=== PATIENT | female | born 1990 | race African-American/Black ===

== ENCOUNTER 2016-09-29 23:42 | Emergency (ER) | payer OTHER ==
[~2016-09-29 23:42] MED LIST: BENADRYL25 M1; FAMOTIDINE; NO MEDICATIONS; PREDNISONE
== END 2016-09-30 00:28 | disposition home or self-care (01) ==
LOC: SED 23:42
DX: J02.9 Acute pharyngitis, unspecified (principal); F17.210 Nicotine dependence, cigarettes, uncomplicated; Z91.040 Latex allergy status; Z88.8 Allergy status to other drugs, medicaments and biological substances
CPT/HCPCS: 84703; 87651; 99282

== ENCOUNTER 2016-10-12 18:45 | Emergency (ER) | payer OTHER | END 2016-10-12 19:16 | disposition home or self-care (01) | LOC: SED 18:45 | DX: J06.9 Acute upper respiratory infection, unspecified (principal); Z91.040 Latex allergy status; Z88.8 Allergy status to other drugs, medicaments and biological substances | CPT/HCPCS: 99282 ==

== ENCOUNTER 2016-11-09 21:41 | Emergency (ER) | payer OTHER ==
[2016-11-09 21:48] LABS: URINE SOURCE CLEAN CATCH
[2016-11-09 21:50] LABS: URINE APPEARANCE CLEAR; URINE BILIRUBIN NEG (NEG); URINE BLOOD 3+ (NEG); URINE COLOR YELLOW; URINE GLUCOSE NEG (NORM); URINE KETONE TRACE (NEG); URINE NITRATE NEG (NEG); URINE PH 6.5 (5-8); URINE PROTEIN TRACE (NEG)
[2016-11-09 21:56] LABS: MICRO INDICATED? YES; URINE LEUKOCYTE ESTERASE 1+ (NEG)
[2016-11-09 21:57] LABS: CULTURE INDICATED? YES; URINE BACTERIA 1+ (NEG); URINE MUCUS PRESENT; URINE SQUAMOUS EPITHELIAL CELL MANY /[HPF]
== END 2016-11-09 22:35 | disposition home or self-care (01) ==
LOC: SED 21:41
PROVIDERS: Nurse Practitioner Family
DX: M54.5 Low back pain (principal); F17.200 Nicotine dependence, unspecified, uncomplicated
CPT/HCPCS: 81003; 84703; 87086; 99283

== ENCOUNTER 2016-12-25 21:50 | Emergency (ER) | payer OTHER ==
[2016-12-26 02:05] LABS: URINE SOURCE CLEAN CATCH
[2016-12-26 02:15] LABS: MICRO INDICATED? YES; URINE APPEARANCE CLEAR; URINE BILIRUBIN NEG (NEG); URINE BLOOD 2+ (NEG); URINE COLOR YELLOW; URINE GLUCOSE NEG (NORM); URINE KETONE NEG (NEG); URINE LEUKOCYTE ESTERASE NEG (NEG); URINE NITRATE NEG (NEG); URINE PROTEIN NEG (NEG); URINE SPECIFIC GRAVITY 1.025 (1.003-1.035)
[2016-12-26 02:20] LABS: CULTURE INDICATED? NO; URINE BACTERIA NEG (NEG); URINE MUCUS PRESENT; URINE SQUAMOUS EPITHELIAL CELL FEW /[HPF]
[2016-12-26 02:21] LABS: URINE AMORPHOUS SEDIMENT AMORP URATES
[2016-12-28 08:32] LABS: CHLAMYDIA TRACH Not Detected (Not Detected); N GONOR Not Detected (Not Detected)
== END 2016-12-26 02:40 | disposition home or self-care (01) ==
LOC: SED 21:50
PROVIDERS: Nurse Practitioner Family
DX: N76.0 Acute vaginitis (principal); N93.8 Other specified abnormal uterine and vaginal bleeding; F17.210 Nicotine dependence, cigarettes, uncomplicated; Z91.040 Latex allergy status; Z88.5 Allergy status to narcotic agent
CPT/HCPCS: 81003; 84703; 87210; 87491; 87591; 87808; 87905; 99284

== ENCOUNTER 2017-02-09 18:13 | Emergency (ER) | payer OTHER ==
[~2017-02-09] VITALS: Ht 160 cm; Wt 108.9 kg
--- NOTE | ~2017-02-09 | CT99 ---
[facility] A Service of [facility] & [facility] RADIOLOGY TEXT RESULTS PATIENT: RACHEL QUARLES LOCATION: SED : 86 UNIT #: [id number] AGE: [address]: Shelby Blanton SEX: F ORDER DR: [id number] [address] [address] [id number] MR#: [id number] Acc #: [id number] NAME: RACHEL QUARLES : 1990 SEX: F STUDY DATE/TIME: 02/09/2017 19:54 UNIT: SED ROOM: STUDY DESCRIPTION: CT Maxillofacial Area W Cont Attending Physician: Shelby Blanton Pa-C Ordering Physician: Shelby Blanton Pa-C Primary Care Physician: Ma[facility] MEDICAL IMAGING REPORT This report is preliminary unless electronic signature is present. EXAM CT maxillofacial area with contrast HISTORY Painful lump/knot under chin on left side for 24 hours, possible abscess. The patient attempted to remove facial piercing, but was unable to. COMMENT CT of the facial bones performed during the intravenous administration of 100 mL of Isovue 370. Imaging was required in the axial plane followed by sagittal and coronal reconstructed images. This CT exam was performed with one or more of the following radiation dose reduction techniques: automatic exposure control, adjustment of mA and/or kV according to patient size, and iterative reconstruction. COMPARISON There is no comparison study FINDINGS There is artifact from dental metal and the facial piercing. Technologist did not froylan the area of interest, but indicates that it is in the left side underneath the chin. There is a soft tissue lesion seen left paramedian subcutaneous fat just below the floor of the mouth musculature measuring about 1.2 x 1.1 cm in dimension. It is most likely an enlarged lymph node. It could simply be reactive, but follow up is recommended to ensure that it resolves. No drainable fluid collection is suspected. There are smaller submandibular region nodes bilaterally. The mastoid air cells are clear. There is mucosal disease in the paranasal sinuses including the right frontal sinus and the bilateral ethmoid air cells right sphenoid sinus, but there is no air fluid level. The temporomandibular joints are located. [facility]. [facility] A Service of [facility] & [facility] RADIOLOGY TEXT RESULTS PATIENT: RACHEL QUARLES LOCATION: [place] : 86 UNIT #: [id number] AGE: [address]: Shelby Blanton SEX: F ORDER DR: IMPRESSION 1. Findings are most consistent with an enlarged left paramedian submental lymph node up to about 1.2 cm in dimension. In age group it is probably reactive, but follow up to ensure resolution is recommended to exclude other pathology. 2. Please be aware this study is limited by streak artifact from the patient's dental metal as well as non-removable piercing. 3. There is some paranasal sinus disease without sinus air fluid level. Dictated by... Eunice Easley M.D. THIS IS AN ELECTRONICALLY VERIFIED REPORT Eunice Easley M.D. at 02/12/2017 6:12 AM SAC/to TD: 02/10/2017 10:52 JOB #: [id number] MEDICAL IMAGING REPORT Page 1 of 1
[2017-02-09 19:12] LABS: BASOPHIL% 0.4 % (0-2.5); DIFF IND NO; EOSINOPHIL# 0.3 X10e3 (0-0.7); EOSINOPHIL% 4.1 % (0.0-7.0); HEMATOCRIT 41.7 % (35.0-45.0); HEMOGLOBIN 13.7 gm/dL (12.0-16.0); LYMPHOCYTE# 1.7 X10e3 (1.0-3.5); LYMPHOCYTE% 21.7 % (17.0-45.0); MEAN CELL VOLUME 83.1 FL (83-96); MEAN CORPUSCULAR HEMOGLOBIN 27.2 PG (28-34); MEAN CORPUSCULAR HGB CONC 32.8 g/dL (30-36); MEAN PLATELET VOLUME 10.6 FL (6.5-11.5); MONOCYTE# 0.5 X10e3 (0-1.0); MONOCYTE% 6.2 % (3.0-12.0); NEUTROPHIL# 5.3 X10e3 (1.5-7.1); NEUTROPHIL% 67.6 % (40-75); PLATELET COUNT 169 X10e3 (140-420); RED BLOOD COUNT 5.02 X10e (3.90-5.30); RED CELL DISTRIBUTION WIDTH 14.3 % (11.0-15.5); WHITE BLOOD COUNT 7.8 X10e3 (4.0-10.5)
[2017-02-09 19:25] LABS: ALBUMIN SERUM 4.2 g/dL (3.5-5.0); BILIRUBIN,TOTAL 0.3 mg/dL (0.2-2.0); CALCIUM SERUM 9.2 mg/dL (8.4-10.2); CREATININE SERUM 0.6 mg/dL (0.6-1.4); GLOM FILT RATE Estimated 143.8 mL/min (>60); POTASSIUM 3.8 mmol/L (3.5-5.1); PROTEIN TOTAL SERUM 7.3 g/dL (6.0-8.3)
== END 2017-02-09 21:13 | disposition home or self-care (01) ==
LOC: SED 18:13
PROVIDERS: Physician Assistant
DX: R59.1 Generalized enlarged lymph nodes (principal); F17.210 Nicotine dependence, cigarettes, uncomplicated; Z91.040 Latex allergy status; Z88.8 Allergy status to other drugs, medicaments and biological substances
CPT/HCPCS: 70487; 80053; 84703; 85025; 96360; 99284; Q9967

== ENCOUNTER 2017-02-11 11:39 | Emergency (ER) | payer OTHER ==
[2017-02-11 13:36] LABS: URINE SOURCE CLEAN CATCH
[2017-02-11 13:39] LABS: URINE APPEARANCE CLEAR; URINE BILIRUBIN NEG (NEG); URINE BLOOD NEG (NEG); URINE COLOR YELLOW; URINE GLUCOSE NEG (NORM); URINE KETONE NEG (NEG); URINE LEUKOCYTE ESTERASE NEG (NEG); URINE NITRATE NEG (NEG); URINE PH 6.5 (5-8); URINE PROTEIN NEG (NEG); URINE SPECIFIC GRAVITY 1.025 (1.003-1.035)
[2017-02-11 13:42] LABS: MICRO INDICATED? NO
[2017-02-13 16:08] LABS: CHLAMYDIA TRACH Not Detected (Not Detected); N GONOR Not Detected (Not Detected)
== END 2017-02-11 13:39 | disposition home or self-care (01) ==
LOC: SED 11:39
PROVIDERS: Physician Assistant
DX: N95.2 Postmenopausal atrophic vaginitis (principal); F17.200 Nicotine dependence, unspecified, uncomplicated
CPT/HCPCS: 81003; 87210; 87491; 87591; 87808; 87905; 99283

== ENCOUNTER 2017-02-15 14:25 | Emergency (ER) | payer OTHER ==
[~2017-02-15] VITALS: Ht 160 cm; Wt 104.3 kg
[2017-02-15 15:05] LABS: URINE SOURCE CLEAN CATCH
[2017-02-15 15:08] LABS: URINE APPEARANCE CLEAR; URINE BILIRUBIN NEG (NEG); URINE BLOOD 3+ (NEG); URINE COLOR YELLOW; URINE GLUCOSE NEG (NORM); URINE KETONE TRACE (NEG); URINE LEUKOCYTE ESTERASE 1+ (NEG); URINE NITRATE NEG (NEG); URINE PROTEIN NEG (NEG); URINE SPECIFIC GRAVITY >=1.030 (1.003-1.035)
[2017-02-15 15:10] LABS: MICRO INDICATED? YES
[2017-02-15 15:26] LABS: CULTURE INDICATED? NO; URINE BACTERIA NEG (NEG); URINE WBC 0-2 /[HPF] (0-5)
== END 2017-02-15 15:47 | disposition home or self-care (01) ==
LOC: SED 14:25
PROVIDERS: Student in an Organized Health Care Education/Training Program
DX: N93.9 Abnormal uterine and vaginal bleeding, unspecified (principal); F17.210 Nicotine dependence, cigarettes, uncomplicated; Z91.040 Latex allergy status; Z88.8 Allergy status to other drugs, medicaments and biological substances
CPT/HCPCS: 81003; 84703; 99284

== ENCOUNTER 2017-02-22 10:32 | Emergency (ER) | payer OTHER ==
[~2017-02-22] VITALS: Ht 160 cm; Wt 112.5 kg
== END 2017-02-22 11:10 | disposition home or self-care (01) ==
LOC: SED 10:32
DX: J06.9 Acute upper respiratory infection, unspecified (principal); F17.210 Nicotine dependence, cigarettes, uncomplicated; Z88.8 Allergy status to other drugs, medicaments and biological substances; Z91.040 Latex allergy status
CPT/HCPCS: 99283

== ENCOUNTER 2017-03-02 13:14 | Emergency (ER) | payer OTHER | END 2017-03-02 15:05 | disposition home or self-care (01) | LOC: SED 13:14 | DX: M54.5 Low back pain (principal); G89.29 Other chronic pain; F17.200 Nicotine dependence, unspecified, uncomplicated; Z88.5 Allergy status to narcotic agent; Z91.040 Latex allergy status | CPT/HCPCS: 99283 ==

== ENCOUNTER 2017-03-10 17:04 | Emergency (ER) | payer OTHER ==
[~2017-03-10] VITALS: Ht 162.6 cm; Wt 110.7 kg
[2017-03-10 18:06] LABS: URINE SOURCE CLEAN CATCH
[2017-03-10 18:09] LABS: URINE APPEARANCE HAZY; URINE BILIRUBIN NEG (NEG); URINE BLOOD NEG (NEG); URINE COLOR YELLOW; URINE GLUCOSE NEG (NORM); URINE KETONE TRACE (NEG); URINE LEUKOCYTE ESTERASE TRACE (NEG); URINE NITRATE NEG (NEG); URINE PH 6.5 (5-8); URINE PROTEIN TRACE (NEG); URINE SPECIFIC GRAVITY 1.025 (1.003-1.035)
[2017-03-10 18:11] LABS: BASOPHIL% 0.3 % (0-2.5); EOSINOPHIL# 0.3 X10e3 (0-0.7); EOSINOPHIL% 3.7 % (0.0-7.0); HEMATOCRIT 40.2 % (35.0-45.0); HEMOGLOBIN 13.4 gm/dL (12.0-16.0); LYMPHOCYTE# 1.3 X10e3 (1.0-3.5); LYMPHOCYTE% 15.7 % (17.0-45.0); MEAN CORPUSCULAR HEMOGLOBIN 27.3 PG (28-34); MEAN CORPUSCULAR HGB CONC 33.4 g/dL (30-36); MEAN PLATELET VOLUME 10.7 FL (6.5-11.5); MICRO INDICATED? YES; MONOCYTE# 0.4 X10e3 (0-1.0); MONOCYTE% 4.6 % (3.0-12.0); NEUTROPHIL# 6.3 X10e3 (1.5-7.1); NEUTROPHIL% 75.7 % (40-75); PLATELET COUNT 148 X10e3 (140-420); WHITE BLOOD COUNT 8.3 X10e3 (4.0-10.5)
[2017-03-10 18:12] LABS: CULTURE INDICATED? YES; URINE BACTERIA 1+ (NEG); URINE RBC 0-2 /[HPF] (0-2)
[2017-03-10 18:13] LABS: URINE MUCUS PRESENT; URINE SQUAMOUS EPITHELIAL CELL MODERATE /[HPF]
[2017-03-10 18:15] LABS: DIFF IND NO
[2017-03-10 18:50] LABS: ALBUMIN SERUM 4.1 g/dL (3.5-5.0); BILIRUBIN, DIRECT 0.1 mg/dL (0.0-0.2); BILIRUBIN,INDIRECT 0.6 mg/dL (0.0-0.9); BILIRUBIN,TOTAL 0.7 mg/dL (0.2-2.0); BUN/CREATININE RATIO 23.33; CALCIUM SERUM 8.5 mg/dL (8.4-10.2); CREATININE SERUM 0.6 mg/dL (0.6-1.4); GLOM FILT RATE Estimated 143.8 mL/min (>60); POTASSIUM 3.5 mmol/L (3.5-5.1)
== END 2017-03-10 18:33 | disposition home or self-care (01) ==
LOC: SED 17:04
PROVIDERS: Emergency Medicine
DX: R11.2 Nausea with vomiting, unspecified (principal); R19.7 Diarrhea, unspecified; F17.210 Nicotine dependence, cigarettes, uncomplicated; Z91.040 Latex allergy status; Z88.8 Allergy status to other drugs, medicaments and biological substances
CPT/HCPCS: 36415; 80048; 80076; 81003; 83690; 84703; 85025; 87086; 99284; J2405

== ENCOUNTER 2017-03-15 20:15 | Emergency (ER) | payer OTHER ==
[~2017-03-15] VITALS: Ht 160 cm; Wt 104.8 kg
== END 2017-03-15 22:12 | disposition home or self-care (01) ==
LOC: SED 20:15
DX: G43.909 Migraine, unspecified, not intractable, without status migrainosus (principal); G89.29 Other chronic pain; M54.2 Cervicalgia; F17.210 Nicotine dependence, cigarettes, uncomplicated; Z91.040 Latex allergy status; Z88.8 Allergy status to other drugs, medicaments and biological substances
CPT/HCPCS: 99284